=== PATIENT | male | born 1965 | race Caucasian/White ===

== ENCOUNTER 2016-10-11 22:22 | Emergency (ER) | payer BC ==
[2016-10-11] MEDS ORDERED: PROPARACAINE HCL OPTH 15ML BTL OPTH ONE (22:46)
--- NOTE | 2016-10-11 22:56 | Emergency Department Record ---
History of Present Illness - General Chief complaint: Eye Problem Stated complaint: EYE INFECTION Time Seen by Provider: 10/11/16 22:47 Source: Patient Mode of Arrival: Ambulatory - History of Present Illness Initial comments: The patient has been on vacation for 1 week without wearing his contact lenses. Geting back to work today, patient put his contact lenses in this morning around 6:30 a.m. and by 9:30 they were burning so much that he removed them and wore his glasses the remainder of the day. His eyes have become reddened, burning and tearing bilaterally. He denies glaucoma, vision changes or other eye diseases. Onset/Timin -: Days(s) Onset Description: Gradual Location: Both eyes Place: Home If Injury: None Eye Symptoms: Blurry vision, Itching, Pain Severity scale (1-10): 4 If Pain, Quality: Aching Consistency: Constant, Getting worse - Related Data Home Medications Medication Instructions Recorded Confirmed Last Taken Clonazepam [Clonazepam] 1 mg PO QHS 02/12/15 10/11/16 Unknown Bupropion HCl [Bupropion HCl Sr] 200 mg PO BID 10/11/16 10/11/16 Unknown Ibuprofen [Ibuprofen] 800 mg PO TID PRN 10/11/16 10/11/16 Unknown Losartan Potassium [Losartan 100 mg PO DAILY 10/11/16 10/11/16 Unknown Potassium] Venlafaxine HCl [Venlafaxine HCl 75 mg PO BID 10/11/16 10/11/16 Unknown ER] Previous Rx's Medication Instructions Recorded Hydrocodone/Acetaminophen [Clayton 1 each PO Q6HR #6 tablet 10/11/16 5-325 Tablet] Allergies Allergy/AdvReac Type Severity Reaction Status Date / Time No Known Drug Intolerances Allergy Unknown Unverified 07/23/13 10:06 Travel Screening - Travel/Exposure Within Last 30 Days Have you traveled within the last 30 days?: No Review of Systems Reviewed: No additional complaints except as noted below Constitutional: Reports: As per HPI. Denies: Chills, Fever, Malaise, Night sweats, Weakness, Weight change Eyes: Reports: As per HPI. Denies: Eye discharge, Eye pain, Photophobia, Vision change ENT: Reports: As per HPI. Denies: Congestion, Dental pain, Ear pain, Epistaxis , Hearing loss, Throat pain Respiratory: Reports: As per HPI. Denies: Cough, Dyspnea, Hemoptysis, Stridor, Wheezes Cardiovascular: Reports: As per HPI. Denies: Arrhythmia, Chest pain, Dyspnea on exertion, Edema, Murmurs, Orthopnea, Palpitations, Paroxysmal nocturnal dyspnea, Rheumatic Fever, Syncope Endocrine: Reports: As per HPI. Denies: Fatigue, Heat or cold intolerance, Polydipsia, Polyuria Gastrointestinal: Reports: As per HPI. Denies: Abdominal pain, Constipation, Diarrhea, Hematemesis, Hematochezia, Melena, Nausea, Vomiting Genitourinary: Reports: As per HPI. Denies: Dysuria, Frequency, Hematuria, Incontinence, Retention, Testicular pain, Testicular mass, Urgency Musculoskeletal: Reports: As per HPI. Denies: Arthralgia, Back pain, Gout, Joint swelling, Myalgia, Neck pain Skin: Reports: As per HPI. Denies: Bruising, Change in color, Change in hair/ nails, Lesions, Pruritus, Rash Neurological: Reports: As per HPI. Denies: Abnormal gait, Confusion, Headache, Numbness, Paresthesias, Seizure, Tingling, Tremors, Vertigo, Weakness Psychiatric: Reports: As per HPI. Denies: Anxiety, Auditory hallucinations, Depression, Homicidal thoughts, Suicidal thoughts, Visual hallucinations Hematological/Lymphatic: Reports: As per HPI. Denies: Anemia, Blood Clots, Easy bleeding, Easy bruising, Swollen glands Past Medical History - SOCIAL HISTORY Smoking Status: Current every day smoker Alcohol Use: Occasional Drug Use: None - RESPIRATORY Hx Respiratory Disorders: Yes Hx Sleep Apnea: Yes Hx of CPAP: Yes - CARDIOVASCULAR Hx Cardio Disorders: Yes Hx Hypertension: Yes - NEURO Hx Neuro Disorders: No - GI Hx GI Disorders: Yes Hx Rectal Bleeding: Yes Comment:: hemorrhoids - Hx Genitourinary Disorders: No - ENDOCRINE Hx Endocrine Disorders: No - MUSCULOSKELETAL Hx Musculoskeletal Disorders: Yes Hx Arthritis: Yes - PSYCH Hx Psych Problems: Yes Hx Anxiety: Yes Hx Depression: Yes - HEMATOLOGY/ONCOLOGY Hx Hematology/Oncology Disorders: No Family Medical History Any Significant Family History?: Yes Hx Cancer: Grandparents Hx Diabetes: Father Hx Heart Disease: Grandparents *Heart Comment: [employer] Physical Exam - General General Appearance: Alert, Oriented x3, Cooperative, No acute distress - Head Head exam: Normal inspection - Eye Eye exam: Normal appearance, PERRL, Conjunctival injection (bilaterally with tearing), EOMI, Other (No FB sensation; comfplete relief with alcaine, no uptake with fluorescein billaterally). negative: Nystagmus, Scleral icterus Pupils: Normal accommodation. negative: Irregular, Miosis, Mydriatic, Unequal - ENT ENT exam: Normal exam, Mucous membranes moist, Normal external ear exam, Normal orophraynx, TM's normal bilaterally Ear exam: Normal external inspection. negative: External canal tenderness Nasal Exam: Normal inspection. negative: Discharge, Sinus tenderness Mouth exam: Normal external inspection, Tongue normal Teeth exam: Normal inspection. negative: Dental caries Throat exam: Normal inspection. negative: Tonsillar erythema, Tonsillar exudate - Neck Neck exam: Normal inspection, Full ROM. negative: Tenderness - Respiratory Respiratory exam: Normal lung sounds bilaterally. negative: Respiratory distress - Cardiovascular Cardiovascular Exam: Regular rate, Normal rhythm, Normal heart sounds - GI/Abdominal GI/Abdominal exam: Soft, Normal bowel sounds. negative: Tenderness - Rectal Rectal exam: Deferred - exam: Deferred - Extremities Extremities exam: Normal inspection, Full ROM, Normal capillary refill. negative: Tenderness - Back Back exam: Reports: Normal inspection, Full ROM. Denies: Muscle spasm, Rash noted, Tenderness - Neurological Neurological exam: Alert, Normal gait, Oriented X3, Reflexes normal - Psychiatric Psychiatric exam: Normal affect, Normal mood - Skin Skin exam: Dry, Intact, Normal color, Warm Course Vital Signs 10/11/16 22:27 Temperature 98.2 F Pulse Rate 72 Respiratory 18 Rate Blood Pressure 142/90 Pulse Ox 99 Medical Decision Making - Management Options MDM Management: No Additional Work-up Planned Disposition Disposition: Discharge Clinical Impression: Conjunctivitis Qualifiers: Conjunctivitis type: acute Acute conjunctivitis type: bacterial Laterality: bilateral Qualified Code(s): H10.33 - Unspecified acute conjunctivitis, bilateral Disposition: Home, Self-Care Instructions: Conjunctivitis (ED) Additional Instructions: Garamycin drops 2 every 4 hours while awake each eye. Do not rub. No contact lenses in your eyes! Follow up with you eye doctor 24-48 hours without fail. Of work tomorrow. Prescriptions: Hydrocodone/Acetaminophen [Clayton 5-325 Tablet] 1 each PO Q6HR #6 tablet Forms: Patient Portal Access Quality - Quality Measures Quality Measures: N/A - Blood Pressure Screening Blood Pressure Classification: Hypertensive Reading Systolic Measurement: 142 Diastolic Measurement: 90 Screening for High Blood Pressure: < Pre-Hypertensive BP, F/U Documented > [ [id number]] Pre-Hypertensive Follow-up Interventions: Follow-up with rescreen every year. Not Eligible Reason: Urgent or Emergent Situation
[2016-10-11] MEDS ORDERED: GENTAMICIN SULFATE 0.3% OPTH 5 ML BTL OPTH ONE (23:00)
[2016-10-11] MEDS ORDERED: HYDROCODONE/APAP 5/325MG TABLET PO ONE (23:01)
== END 2016-10-11 23:18 | disposition home or self-care (01) ==
LOC: ER 22:22
DX: H10.33 Unspecified acute conjunctivitis, bilateral (principal)
CPT/HCPCS: 99282

== ENCOUNTER 2018-08-01 14:30 | Emergency (ER) | payer BC ==
[2018-08-01] MEDS ORDERED: NITROGLYCERIN 0.4MG SL TABLET #25 BTL SL PRN (15:07)
[2018-08-01] MEDS ORDERED: ASPIRIN 81 MG CHEWABLE TABLET PO ONE (15:07)
[2018-08-01 15:19] LABS: HEMATOCRIT 41.1 % (42.0-52.0); HEMOGLOBIN 13.2 gm/dl (14.0-18.0); MEAN CELL VOLUME 98.6 fl (81-97); MEAN CORPUSCULAR HEMOGLOBIN 31.6 pg (27-33); MEAN CORPUSCULAR HGB CONC 32.1 g/dl (32-36); MEAN PLATELET VOLUME 10.4 fl (7.4-10.4); PLATELET COUNT 207 K/uL (130-400); RED BLOOD COUNT 4.17 M/uL (4.40-5.70); RED CELL DISTRIBUTION WIDTH 13.5 % (11.5-14.5); WHITE BLOOD COUNT W/O DIFF 11.4 K/uL (4.2-12.2)
[2018-08-01 15:30] LABS: BLOOD UREA NITROGEN 11 mg/dL (6-20); CREATININE 0.7 mg/dL (0.7-1.2); EST GLOMERULAR FILTRATION RATE > 60 mL/min
[2018-08-01 15:31] LABS: TOTAL PROTEIN 6.8 g/dL (6.6-8.7)
[2018-08-01 15:33] LABS: GLUCOSE,RANDOM 100 mg/dL (74-109)
[2018-08-01 15:35] LABS: ALBUMIN 4.5 g/dL (4.0-5.0); ALT/SGPT 19 U/L (<41); AST/SGOT 20 U/L (10.0-50.0)
[2018-08-01 15:36] LABS: ALKALINE PHOSPHATASE 77 U/L (40-129); CREATINE PHOSPHOKINASE 177 U/L (39-308)
[2018-08-01 15:38] LABS: CKMB 2.9 ng/mL (<6.73)
--- NOTE | 2018-08-01 15:44 | Emergency Department Record ---
History of Present Illness - General Chief Complaint: Chest Pain Stated Complaint: CHEST PAIN Time Seen by Provider: 08/01/18 14:53 Source: Patient Mode of Arrival: Ambulatory Limitations: No limitations - History of Present Illness Initial Comments: pt has been having intermittent cp for over a month. no inciting factors or other symptoms. it is gone now Complaint: Chest pain Onset/Timin -: Month(s) Pain Location: Left chest, Right chest Pain Radiation: None Quality: Aching, Dull Consistency: Intermittent Improves With: Nothing Worsens With: Nothing Treatments Prior to Arrival: None - Related Data Previous Rx's Medication Instructions Recorded Amoxicillin/Potassium Clav 1 tab PO BID #20 tab 08/01/18 [Augmentin 500Mg/125Mg] Allergies Allergy/AdvReac Type Severity Reaction Status Date / Time No Known Drug Intolerances Allergy Unknown PT UNSURE Verified 08/01/18 14:37 OF REACTION Travel Screening - Travel/Exposure Within Last 30 Days Have you traveled within the last 30 days?: No Review of Systems Reviewed: No additional complaints except as noted below Constitutional: Reports: As per HPI. Denies: Chills, Fever, Malaise, Night sweats, Weakness, Weight change Eyes: Reports: As per HPI. Denies: Eye discharge, Eye pain, Photophobia, Vision change ENT: Reports: As per HPI. Denies: Congestion, Dental pain, Ear pain, Epistaxis , Hearing loss, Throat pain Respiratory: Reports: As per HPI. Denies: Cough, Dyspnea, Hemoptysis, Stridor, Wheezes Cardiovascular: Reports: As per HPI, Chest pain. Denies: Arrhythmia, Dyspnea on exertion, Edema, Murmurs, Orthopnea, Palpitations, Paroxysmal nocturnal dyspnea, Rheumatic Fever, Syncope Endocrine: Reports: As per HPI. Denies: Fatigue, Heat or cold intolerance, Polydipsia, Polyuria Gastrointestinal: Reports: As per HPI. Denies: Abdominal pain, Constipation, Diarrhea, Hematemesis, Hematochezia, Melena, Nausea, Vomiting Genitourinary: Reports: As per HPI. Denies: Dysuria, Frequency, Hematuria, Incontinence, Retention, Testicular pain, Testicular mass, Urgency Musculoskeletal: Reports: As per HPI. Denies: Arthralgia, Back pain, Gout, Joint swelling, Myalgia, Neck pain Skin: Reports: As per HPI. Denies: Bruising, Change in color, Change in hair/ nails, Lesions, Pruritus, Rash Neurological: Reports: As per HPI. Denies: Abnormal gait, Confusion, Headache, Numbness, Paresthesias, Seizure, Tingling, Tremors, Vertigo, Weakness Psychiatric: Reports: As per HPI. Denies: Anxiety, Auditory hallucinations, Depression, Homicidal thoughts, Suicidal thoughts, Visual hallucinations Hematological/Lymphatic: Reports: As per HPI. Denies: Anemia, Blood Clots, Easy bleeding, Easy bruising, Swollen glands Past Medical History - SOCIAL HISTORY Smoking Status: Current every day smoker - RESPIRATORY Hx Respiratory Disorders: Yes Hx Sleep Apnea: Yes Hx of CPAP: Yes - CARDIOVASCULAR Hx Cardio Disorders: Yes Hx Hypertension: Yes - NEURO Hx Neuro Disorders: No - GI Hx GI Disorders: Yes Hx Rectal Bleeding: Yes Comment:: hemorrhoids - Hx Genitourinary Disorders: No - ENDOCRINE Hx Endocrine Disorders: No - MUSCULOSKELETAL Hx Musculoskeletal Disorders: Yes Hx Arthritis: Yes - PSYCH Hx Psych Problems: Yes Hx Anxiety: Yes Hx Depression: Yes - HEMATOLOGY/ONCOLOGY Hx Hematology/Oncology Disorders: No Family Medical History Any Significant Family History?: Yes Hx Cancer: Grandparents Hx Diabetes: Father Hx Heart Disease: Grandparents *Heart Comment: [employer] Physical Exam - General General Appearance: Alert, Oriented x3, Cooperative, No acute distress - Head Head exam: Normal inspection - Eye Eye exam: Normal appearance, PERRL, EOMI Pupils: Normal accommodation - ENT ENT exam: Normal exam, Mucous membranes moist, Normal external ear exam, Normal orophraynx Ear exam: Normal external inspection. negative: External canal tenderness Nasal Exam: Normal inspection. negative: Discharge, Sinus tenderness Mouth exam: Normal external inspection, Tongue normal Teeth exam: Normal inspection. negative: Dental caries Throat exam: Normal inspection. negative: Tonsillar erythema, Tonsillar exudate - Neck Neck exam: Normal inspection, Full ROM. negative: Tenderness - Respiratory Respiratory exam: Normal lung sounds bilaterally. negative: Respiratory distress - Cardiovascular Cardiovascular Exam: Regular rate, Normal rhythm, Normal heart sounds - GI/Abdominal GI/Abdominal exam: Soft, Normal bowel sounds. negative: Tenderness - Rectal Rectal exam: Deferred - exam: Deferred - Extremities Extremities exam: Normal inspection, Full ROM, Normal capillary refill. negative: Tenderness - Back Back exam: Reports: Normal inspection, Full ROM. Denies: Muscle spasm, Rash noted, Tenderness - Neurological Neurological exam: Alert, CN II-XII intact, Normal gait, Oriented X3 - Psychiatric Psychiatric exam: Normal affect, Normal mood - Skin Skin exam: Dry, Intact, Normal color, Warm Course Vital Signs 08/01/18 14:33 Temperature 98.6 F Pulse Rate 73 Respiratory 16 Rate Blood Pressure 155/100 Pulse Ox 96 Medical Decision Making - Lab Data Result diagrams: 08/01/18 14:40 08/01/18 14:40 Lab Results 08/01/18 08/01/18 08/01/18 Range/Units 14:40 14:40 14:40 WBC 11.4 (4.2-12.2) K/uL RBC 4.17 L (4.40-5.70) M/uL Hgb 13.2 L (14.0-18.0) gm/dl Hct 41.1 L (42.0-52.0) % MCV 98.6 H (81-97) fl MCH 31.6 (27-33) pg MCHC 32.1 (32-36) g/dl RDW 13.5 (11.5-14.5) % Plt Count 207 (130-400) K/uL MPV 10.4 (7.4-10.4) fl Neutrophils % 40.0 L (47-80) % Eosinophils % Not Reportable Basophils % Not Reportable Absolute Neutrophils Not Reportable Lymphocytes 53.0 H (16-45) % Monocytes 5.0 (0-9) % Eosinophil Count 2.0 (0-6) % D-Dimer 0.25 (0-0.59) mg/L FEU Sodium 140 (136-145) mmol/L Potassium 4.0 (3.4-4.5) mmol/L Chloride 101 (98-107) mmol/L Carbon Dioxide 30.0 H (22-29) mmol/L Anion Gap 9.0 (7-16) BUN 11 (6-20) mg/dL Creatinine 0.7 (0.7-1.2) mg/dL Estimated GFR > 60 mL/min Random Glucose 100 (74-109) mg/dL Calcium 9.1 (8.6-10.0) mg/dL Total Bilirubin 0.40 (0.2-1.0) mg/dL AST 20 (10.0-50.0) U/L ALT 19 (<41) U/L Alkaline Phosphatase 77 (40-129) U/L Creatine Kinase 177 (39-308) U/L CK-MB (CK-2) 2.9 (<6.73) ng/mL Troponin T < 0.010 (0-0.010) ng/mL Total Protein 6.8 (6.6-8.7) g/dL Albumin 4.5 (4.0-5.0) g/dL Globulin 2.3 (1.4-4.8) gm/dL Albumin/Globulin Ratio 2.0 H (1.1-1.8) Disposition Disposition: Discharge Clinical Impression: Elevated hemidiaphragm Pneumonia Qualifiers: Pneumonia type: due to unspecified organism Laterality: left Lung location: lower lobe of lung Qualified Code(s): J18.1 - Lobar pneumonia, unspecified organism Chest pain Qualifiers: Chest pain type: unspecified Qualified Code(s): R07.9 - Chest pain, unspecified Disposition: Home, Self-Care Condition: (1) Good Instructions: Chest Pain (ED), Community Acquired Pneumonia (ED) Additional Instructions: follow up with dr mendez this week regarding chest pain, pneumonia and elevated hemidiaphragm. return sooner if worse. follow up with hard tile setter. take aspirin 81mg a day. Prescriptions: Amoxicillin/Potassium Clav [Augmentin 500Mg/125Mg] 1 tab PO BID #20 tab Forms: Patient Portal Access Quality - Quality Measures Quality Measures: N/A - Blood Pressure Screening Does Patient Have Any of the Following: Active Dx of HTN Blood Pressure Classification: Hypertensive Reading Systolic Measurement: 155 Diastolic Measurement: 100 Screening for High Blood Pressure: Patient Exclusion, Hx of HTN [G9744]
[2018-08-01] MEDS ORDERED: AMOXICILLIN/POTASSIUM CLAV 875MG/125MG TABLET PO ONE (18:17)
== END 2018-08-01 18:54 | disposition home or self-care (01) ==
LOC: ER 14:30
DX: J18.1 Lobar pneumonia, unspecified organism (principal); J98.6 Disorders of diaphragm; R07.89 Other chest pain; I10 Essential (primary) hypertension; F17.210 Nicotine dependence, cigarettes, uncomplicated
CPT/HCPCS: 71046; 80053; 82550; 82553; 84484; 85027; 85379; 93005; 93010; 99284

== ENCOUNTER 2019-03-16 07:35 | Day surgery (SDC) | payer BC ==
[2019-03-16] MEDS ORDERED: LIDOCAINE 2% MDV (20MG/ML) 20ML VIAL IV ONE (07:36)
[2019-03-16] MEDS ORDERED: PROPOFOL 10 MG/ML VIAL IV ONE (07:36)
--- NOTE | 2019-03-26 08:20 | Operative Note ---
DATE OF SERVICE: 03/16/2019. DATE OF SURGERY: 03/16/2019. REQUESTING PROVIDER: Silvano Romano DO. SURGEON: Pj Miller MD. OPERATION: COLONOSCOPY. INDICATIONS FOR PROCEDURE: This is a 53-year-old male who had colonoscopy in 2016 and was set to come back in 10 years, but presented today for repeat screening colonoscopy because he was told to. POSTOPERATIVE DIAGNOSES: 1. A 6 mm size polyp in the rectum that was removed by cold snare. 2. Otherwise normal colon. SEDATION: Sedation is per Anesthesia. Pulse oximetry was monitored throughout the duration of the procedure to maintain O2 saturation of 90% or greater. Supplemental oxygen was administered via nasal cannula. Cardiac and vital signs were monitored throughout the duration of the procedure and they were stable. PROCEDURE: The procedure of colonoscopy, risks and alternatives to the procedure, including the risks of bleeding and perforation among others, were explained to the patient. He voiced understanding and agreed to have the procedure done. Physical examination was performed and the patient was found stable for sedation. The patient was then placed in the left lateral position and sedation was initiated. Digital rectal exam was performed and showed small external hemorrhoids with no palpable rectal masses. A lubricated Olympus PCF1 80AL colonoscope was then inserted into the rectum and under direct visualization was advanced to the cecum without difficulty. The ileocecal valve and appendiceal orifice were identified and photographed. Colonic mucosa was carefully examined upon introduction of the colonoscope. There were no lesions noted. The ileocecal valve and terminal ileum were examined for about 10 cm and it appeared normal. The colonoscope was then withdrawn while carefully reexamining the colonic mucosal surfaces. No lesions were noted in the cecum, ascending colon, transverse colon, or descending colon. In the rectum was a 6 mm size polyp that was removed by cold snare. The colonoscope was then retroflexed, and no other lesions were noted. The colonoscope was then withdrawn and the procedures were terminated. The patient tolerated the procedures well without immediate complications. He remained in stable vital signs and was transferred to the recovery room. PLAN AND RECOMMENDATIONS: 1. He is to be on a high-fiber diet. 2. He is to have repeat colonoscopy for surveillance in 5 or 10 years, depending on the histology of the polyp. Thank you for allowing me to participate in the care of your patient. NICOLE
== END 2019-03-16 09:33 | disposition home or self-care (01) ==
LOC: HOP 07:35
PROVIDERS: ATTEND Internal Medicine Gastroenterology
DX: Z12.12 Encounter for screening for malignant neoplasm of rectum (principal); D12.8 Benign neoplasm of rectum; I10 Essential (primary) hypertension; F17.210 Nicotine dependence, cigarettes, uncomplicated